=== PATIENT | female | born 1975 | race African-American/Black ===

== ENCOUNTER 2016-06-11 10:56 | Inpatient (IN) ==
[2016-06-11] MEDS ORDERED: LR 3,000 ML ONE (11:33)
[2016-06-11] MEDS ORDERED: PITOCIN 30 UNITS/LR 500 ML ONE (11:33)
[2016-06-11] MEDS ORDERED: PEPCID PO PRN ×2 (11:49)
[2016-06-11] MEDS ORDERED: PEPCID PO ONE ×2 (11:49)
[2016-06-11] MEDS ORDERED: TYLENOL PO PRN ×2 (11:49)
[2016-06-11] MEDS ORDERED: REGLAN PO ONE ×2 (11:49)
[2016-06-11] MEDS ORDERED: ZOFRAN IV PRN ×5 (11:49→16:42)
[2016-06-11] MEDS ORDERED: LR 500 ML IV ONE (11:49)
[2016-06-11] MEDS ORDERED: STADOL IV PRN ×2 (11:49)
[2016-06-11] MEDS ORDERED: KEFZOL 1 GM/D5W 50 ML IV PRN ×2 (11:49)
[2016-06-11] MEDS ORDERED: PEPCID IV PRN ×2 (11:49)
[2016-06-11 11:54] LABS: URINE SOURCE VOIDED
[2016-06-11 11:56] LABS: MANUAL DIFF NEEDED? NO
[2016-06-11 11:58] LABS: BASO% 0.1 % (0.0-0.8); EOS# 0.04 X1000 (0.0-0.7); EOS% 0.5 % (0.0-10.0); HEMATOCRIT 29.3 % (37.0-47.0); HEMOGLOBIN 9.6 g/dL (12.0-16.0); IMM GRAN# 0.02 X1000 (0.0-0.04); IMM GRAN% 0.2 % (0.0-0.5); LYMPH# 1.67 X1000 (1.2-3.4); LYMPH% 20.7 % (20.5-51.1); MCH 30.6 PG (27-31); MCHC 32.8 g/dL (33-37); MCV 93.3 FL (81-99); MONO# 0.44 X1000 (0.11-0.59); MONO% 5.5 % (1.7-9.3); MPV 10.3 FL (7.4-10.4); PLT 271 X1000 (130-400); RBC 3.14 XMIL (4.2-5.4)
[2016-06-11] MEDS ORDERED: PITOCIN 30 UNITS/LR 500 ML IV SCH ×2 (12:00)
[2016-06-11] MEDS ORDERED: LR 1,000 ML IV SCH ×2 (12:00)
[2016-06-11] MEDS ORDERED: SODIUM CHLORIDE 0.9% INJ SCH ×2 (12:00)
[2016-06-11 12:03] LABS: BILIRUBIN URINE NEGATIVE (NEGATIVE); BLOOD URINE 2+ (NEGATIVE); CLARITY CLEAR (CLEAR); COLOR YELLOW; GLUCOSE URINE NEGATIVE (NEGATIVE); LEUKOCYTES URINE 1+ (NEGATIVE); NITRITE URINE NEGATIVE (NEGATIVE); PH URINE 6.5; PROTEIN URINE TRACE mg/dL (NEGATIVE); UROBILINOGEN URINE NORMAL
[2016-06-11] MEDS ORDERED: XYLOCAINE-MPF 1% ONE (12:03)
[2016-06-11] MEDS ORDERED: STADOL ONE (12:03)
[2016-06-11] MEDS ORDERED: MINERAL OIL ONE (12:04)
[2016-06-11 12:06] LABS: UR AMPHETAMINES QUAL NONE DETECTED (NONE DETECT); UR BARBITUATES QUAL NONE DETECTED (NONE DETECT); UR BENZODIAZEPIN QUAL NONE DETECTED (NONE DETECT); UR CANNABINOIDS QUAL NONE DETECTED (NONE DETECT); UR COCAINE QUAL NONE DETECTED (NONE DETECT); UR MDMA QUAL NONE DETECTED (NONE DETECT); UR METHADONE QUAL NONE DETECTED (NONE DETECT); UR METHAMPHETAMINE QUAL NONE DETECTED (NONE DETECT); UR OPIATES QUAL NONE DETECTED (NONE DETECT); UR OXYCODONE QUAL NONE DETECTED (NONE DETECT); UR PCP QUAL NONE DETECTED (NONE DETECT); UR TCA QUAL NONE DETECTED (NONE DETECT)
[2016-06-11] MEDS ORDERED: MARCAINE 0.25% PF ONE (12:24)
[2016-06-11] MEDS ORDERED: FENTANYL-BUPIV-NS 2 MCG-0.1% 200 ML ONE (12:24)
[2016-06-11] MEDS ORDERED: NAROPIN 0.2% EPIDURAL ONE (12:30)
[2016-06-11] MEDS ORDERED: MARCAINE 0.25% PF INJ ONE (12:30)
[2016-06-11] MEDS ORDERED: NS 1,000 ML ONE (13:52)
[2016-06-11] MEDS ORDERED: NESACAINE-MPF 3% ONE (14:11)
[2016-06-11] MEDS ORDERED: XYLOCAINE-MPF 2% ONE ×2 (14:11→14:13)
[2016-06-11] MEDS ORDERED: MARCAINE 0.5% PF ONE (14:12)
[2016-06-11] MEDS ORDERED: FENTANYL ONE (14:13)
[2016-06-11] MEDS ORDERED: DURAMORPH ONE (14:14)
[2016-06-11 14:32] LABS: BE 0.1 mmoll (-3.0-3.0); METHB 1.6 % (0.0-1.5); O2(CT) 9.3 mL/dL (15.0-23.0); SAMPLE BLOOD; SAO2 42.6 % (95.0-100.0); THB 16.4 g/dL (11.5-17.4); pH(98.6) 7.29 (7.35-7.45)
[2016-06-11 14:34] LABS: BLOOD TYPE CORD BLOOD; MODALITY ROOM AIR
[2016-06-11 14:35] LABS: ALLEN TEST NO; DRAW SITE UMBILICAL; PO2(98.6) 20 mmHg (60-100)
[2016-06-11 14:36] LABS: PCO2(98.6) 59 mmHg (35-45)
[2016-06-11] MEDS ORDERED: MEFOXIN 1 GM/NS 50 ML IV SCH (14:45)
[2016-06-11] MEDS ORDERED: BOOSTRIX VACCINE IM ONE (14:47)
[2016-06-11] MEDS ORDERED: MINERAL OIL MISC PRN (14:47)
[2016-06-11] MEDS ORDERED: PITOCIN IM PRN ×2 (14:47→15:48)
[2016-06-11] MEDS ORDERED: NORCO-5 PO PRN (14:47)
[2016-06-11] MEDS ORDERED: BENADRYL PO PRN (14:47)
[2016-06-11] MEDS ORDERED: XYLOCAINE-MPF 1% INJ PRN (14:47)
[2016-06-11] MEDS ORDERED: AMBIEN PO PRN ×2 (14:47→15:48)
[2016-06-11] MEDS ORDERED: M-M-R II VACCINE SUBQ ONE (14:47)
[2016-06-11] MEDS ORDERED: PITOCIN 30 UNITS/LR 500 ML IV ONE (14:47)
[2016-06-11] MEDS ORDERED: HYDROXYZINE PO PRN ×2 (14:47→15:48)
[2016-06-11] MEDS ORDERED: PERI MEDS (DERMOPLAST/NUPERCAINAL/TUCKS) MISC PRN (14:47)
[2016-06-11] MEDS ORDERED: BENADRYL IV PRN ×2 (14:47→16:34)
[2016-06-11] MEDS ORDERED: CYTOTEC PO PRN ×2 (14:47→15:48)
[2016-06-11] MEDS ORDERED: HYDROXYZINE IM PRN ×2 (14:47→15:48)
[2016-06-11] MEDS: MEFOXIN 2 GM/NS 50 ML IV SCH ×2 (14:50→21:27)
[2016-06-11] MEDS ORDERED: PITOCIN 20 UNITS/LR 1,000 ML IV SCH (15:00)
[2016-06-11] MEDS ORDERED: DIPRIVAN 1% ONE (15:09)
--- NOTE | 2016-06-11 15:14 | OPERATIVE NOTE ---
PROCEDURE DATE: 06/11/2016 PREOPERATIVE DIAGNOSES: 1. Intrauterine at 39 weeks 6 days. 2. Spontaneous rupture of membranes. 3. Nonreassuring assessment. POSTOPERATIVE DIAGNOSES: 1. Intrauterine at 39 weeks 6 days. 2. Spontaneous rupture of membranes. 3. Nonreassuring assessment. PROCEDURE: Primary low segment transverse section. SURGEON: Dr. Patricia Paritda. ANESTHESIA: Epidural. ESTIMATED BLOOD LOSS: 600 mL. COMPLICATIONS: None. COUNTS: Correct x2. FINDINGS: Viable male , weight and Apgars currently unavailable. Grossly normal-appearing uterus. INDICATIONS FOR PROCEDURE: Patient is a 40-year-old, G7, P-4-0-2-4, with intrauterine at 39 weeks 6 days who presented with complaints of contractions and rupture of membranes. The patient was noted to be ruptured, cervix dilated approximately 4 cm, patient having recurrent deep variable decelerations despite conservative measures, with a 5-minute deceleration prompting primary abdominal delivery. PROCEDURE IN DETAIL: After proper informed consent was obtained, the patient was taken to the operating room and placed in the dorsal supine position with adequate epidural anesthesia. Abdomen was prepped and draped in normal sterile fashion for abdominal surgery. After a proper time-out was performed, a low transverse incision was made on the abdomen. Using the scalpel, this was carried down to the underlying fascia, which was scored in the midline. The fascia was then stretched using the sprayer operator's hand. The muscles were bluntly. Peritoneum was grasped with the hemostat and entered bluntly, and stretched using the sprayer operator's hand. Bladder blade was placed to protect the bladder. A low segment transverse incision was made on the uterus and stretched using the sprayer operator's hand. The infant was delivered in the vertex presentation. Cord was doubly clamped and cut, and the infant was handed off to the waiting pediatric staff. Placenta was delivered via fundal massage. Due to the size of the uterus, unable to exteriorize. Therefore, uterus closed within the abdomen after first being cleared free of all clot and debris. The hysterotomy was reapproximated using #1 chromic in a running locking fashion with added figure- of-eight sutures for added hemostasis. Hysterotomy was reinspected and noted to be hemostatic. The abdomen was copiously irrigated and cleared free of all clot and debris. The peritoneum was reapproximated using 3-0 chromic in a running continuous fashion. The muscles were inspected and noted to be hemostatic. The fascia was then reapproximated using #1 Vicryl in a running continuous fashion. The subcutaneous tissue was made hemostatic using Bovie electrocautery. The subcutaneous tissue was reapproximated using 3-0 chromic in a running continuous fashion. The skin was reapproximated using 4-0 Monocryl in a subcuticular fashion. Patient tolerated the procedure well and was transferred to recovery in stable condition.
[2016-06-11] MEDS ORDERED: PITOCIN 20 UNITS/LR 1,000 ML IV ONE (15:48)
[2016-06-11] MEDS ORDERED: DULCOLAX PR PRN (15:48)
[2016-06-11] MEDS ORDERED: MOTRIN PO PRN (15:48)
[2016-06-11] MEDS ORDERED: DEMEROL IM PRN (15:48)
[2016-06-11] MEDS ORDERED: DEMEROL PO PRN ×2 (15:48)
[2016-06-11] MEDS ORDERED: MYLICON PO PRN (15:48)
[2016-06-11] MEDS ORDERED: PHENERGAN IM PRN (15:48)
[2016-06-11] MEDS ORDERED: ZOFRAN ODT PO PRN (16:34)
[2016-06-11] MEDS ORDERED: NARCAN INJ PRN (16:34)
[2016-06-11] MEDS: DILAUDID IV PRN ×2 (17:08→21:48)
[2016-06-11] MEDS: MYLICON PO SCH ×2 (18:08→21:43)
[2016-06-11] MEDS ORDERED: PERICOLACE PO SCH (21:00)
[2016-06-11] MEDS: PERICOLACE PO SCH (21:44)
[2016-06-11] MEDS: PITOCIN 10 UNITS/LR 1,000 ML IV SCH (23:29)
[2016-06-12] MEDS: MEFOXIN 2 GM/NS 50 ML IV SCH ×2 (03:45→12:20)
[2016-06-12] MEDS: DILAUDID IV PRN (04:29)
[2016-06-12 06:01] LABS: HEMOGLOBIN 8.8 g/dL (12.0-16.0); MCH 30.6 PG (27-31); MCHC 32.6 g/dL (33-37); MCV 93.8 FL (81-99); MPV 10.4 FL (7.4-10.4); RBC 2.88 XMIL (4.2-5.4)
[2016-06-12] MEDS: PITOCIN 10 UNITS/LR 1,000 ML IV SCH (07:57)
[2016-06-12] MEDS: NORCO-10 PO PRN ×4 (07:58→22:34)
[2016-06-12] MEDS: PRECARE PO SCH (09:20)
[2016-06-12] MEDS: MYLICON PO SCH ×4 (09:20→20:46)
[2016-06-12] MEDS ORDERED: LR 1,000 ML IV SCH (15:48)
[2016-06-12] MEDS: PERICOLACE PO SCH (20:46)
[2016-06-12] MEDS: MOTRIN PO PRN (20:46)
[2016-06-13] MEDS: NORCO-10 PO PRN (07:17)
[2016-06-13] MEDS: MOTRIN PO PRN (07:17)
[2016-06-13 07:40] VITALS: BP 140/66
[2016-06-13] MEDS: PRECARE PO SCH (10:36)
[2016-06-13] MEDS: MYLICON PO SCH (10:36)
--- NOTE | 2016-06-13 17:44 | DISCHARGE SUMMARY ---
ADMISSION DATE: 06/11/2016 DISCHARGE DATE: 06/13/2016 ADMITTING DIAGNOSES: 1. Term . 2. Spontaneous rupture of membranes. 3. Nonreassuring heart rate assessment. PRINCIPAL DIAGNOSES: 1. Term . 2. Spontaneous rupture of membranes. 3. Nonreassuring heart rate assessment. PRINCIPAL PROCEDURE: Primary low transverse section. SUMMARY: Orville Desouza is a 40-year-old 7, para 4-0-2-4, at 39 and 6/7 weeks gestation. She presented to Labor Delivery with spontaneous rupture of membranes and was approximately 4 cm dilated. She began having recurrent deep variable decelerations in spite of intrauterine resuscitative measurements. She also had a 5-minute deceleration. This led to a section delivery. She delivered a male who weighed 7 pounds 13 ounces. Apgars were 9 at 1 minute and 10 at 5 minutes. There were no intraoperative complications. Following delivery the patient has done well. She has remained afebrile and all vital signs are stable. She had an admission hemoglobin and hematocrit of 9.6 and 29.3, discharge hemoglobin and hematocrit 8.8 and 27. On the day of discharge, cardiac and pulmonary examinations were normal. Bowel and bladder function was normal. The incision was clean and dry. There was scant vaginal bleeding. Ms. Desouza is being discharged today and will be seen back in the office next week. Routine discharge instructions, activity limitations and precautions were discussed. She will continue vitamins. She was given prescriptions for Roland and Motrin for postoperative pain.
== END 2016-06-13 12:11 | disposition home or self-care (01) | DRG 766 ==
LOC: P.OPLD 10:56 → P.LD 10:57 → P.OPLD 11:38 → P.LD 11:39
PROVIDERS: ADMIT Obstetrics & Gynecology; ATTEND Obstetrics & Gynecology
PROC: 10D00Z1 Extraction of Products of Conception, Low, Open Approach (ICD-10-PCS; principal; 2016-06-11 13:00)
DX: O76 Abnormality in fetal heart rate and rhythm complicating labor and delivery (principal); Z23 Encounter for immunization; Z37.0 Single live birth; Z3A.39 39 weeks gestation of pregnancy
CPT/HCPCS: 59025; 80305; 81003; 82805; 85025; 85027; 86592; 90715; 94799; J0595; J0694; J1170; J2274; J2400; J2590; J3010; J7030; J7120; S0020